=== PATIENT | male | born 2000 | race African-American/Black ===

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

== ENCOUNTER 2019-07-20 06:58 | Emergency (ER) | payer OTHER ==
[~2019-07-20] VITALS: Ht 190.5 cm; Wt 74.8 kg
[2019-07-20 06:58] VITALS: BP 117/74
[~2019-07-20 06:58] MED LIST: CYCLOBENZAPRINE5 MG PO; ENDOXCIN 4%-1%1 EACH TOP; IBUPROFEN 600600 M1 PO
[2019-07-20] MEDS ORDERED: ZOFRAN ODT4 MG PO (07:27)
== END 2019-07-20 07:30 | disposition home or self-care (01) ==
LOC: ER 06:58
DX: S09.90XA Unspecified injury of head, initial encounter (principal); F84.5 Asperger's syndrome; W22.8XXA Striking against or struck by other objects, initial encounter; Y93.89 Activity, other specified; Y92.69 Other specified industrial and construction area as the place of occurrence of the external cause; Y99.9 Unspecified external cause status

== ENCOUNTER 2020-01-16 13:06 | Emergency (ER) | payer OTHER ==
[~2020-01-16] VITALS: Ht 190.5 cm; Wt 71.7 kg
[~2020-01-16 13:06] MED LIST changes: +ZOFRAN ODT4 MG PO
[2020-01-16] MEDS ORDERED: IBU600 MG PO (14:15)
[2020-01-16 14:28] VITALS: BP 112/78
== END 2020-01-16 14:28 | disposition home or self-care (01) ==
LOC: ER 13:06
DX: M79.671 Pain in right foot (principal)